=== PATIENT | female | born 1975 | race African-American/Black ===

== ENCOUNTER 2017-08-19 08:47 | Outpatient (CLI) | payer OTHER ==
--- NOTE | 2017-08-19 12:24 | CT ---
CT ABDOMEN AND PELVIS WITH AND WITHOUT IV CONTRAST: HISTORY: Right renal mass. Followup. COMPARISON: 06/15/2012 and 05/03/2015 FINDINGS: The lung bases are clear. The oval fat density mass within the posterior cortex of the right kidney remains well circumscribed. It is now 1.3 cm in greatest depth on the axial images, where it was 1 .0 cm on the previous study and 0.4 cm on the 2012 exam. No new renal masses are apparent. No urin alexandra tract calcifications are evident. No filling defects are present within the urinary system on t he delayed images. The liver, spleen, left kidney, adrenal glands, and pancreas are within normal l imits. 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 POS: [facility]
[2017-08-19] MEDS ORDERED: Iopamidol 370 76% 100 ML VIAL ONE (16:36)
== END 2017-08-19 08:48 | disposition home or self-care (01) ==
LOC: CT 08:47
PROVIDERS: ATTEND Urology
DX: N28.1 Cyst of kidney, acquired (principal); R31.29 Other microscopic hematuria; D17.71 Benign lipomatous neoplasm of kidney
CPT/HCPCS: 36415; 74178; 80048; 81001; 87086

== ENCOUNTER 2017-10-26 09:08 | Emergency (ER) | payer OTHER ==
[2017-10-26] MEDS ORDERED: HYDROcodone/Acetaminophen 10/325 mg Tablet ONE (10:24)
--- NOTE | 2017-10-26 10:43 | RAD ---
RIGHT KNEE 4 VIEWS; Date: 10/26/17 HISTORY: Joint pain. COMPARISON: None. FINDINGS: No joint effusion. No fracture. No cortical irregularity. No periosteal reaction. Joint spaces are pr eserved. IMPRESSION: Unremarkable 4 views right knee. POS: [facility]
== END 2017-10-26 10:56 | disposition home or self-care (01) ==
LOC: ERS 09:08
DX: M17.0 Bilateral primary osteoarthritis of knee (principal); I10 Essential (primary) hypertension; F41.9 Anxiety disorder, unspecified

== ENCOUNTER 2017-11-15 08:36 | Emergency (ER) | payer OTHER | END 2017-11-15 09:35 | disposition home or self-care (01) | LOC: ERS 08:36 | DX: J06.9 Acute upper respiratory infection, unspecified (principal); I10 Essential (primary) hypertension; F41.9 Anxiety disorder, unspecified | CPT/HCPCS: 99283 ==

== ENCOUNTER 2018-01-29 19:08 | Emergency (ER) | payer OTHER ==
[2018-01-29] MEDS ORDERED: Ketorolac Tromethamine 30 MG/ML VIAL ONE (20:55)
== END 2018-01-29 21:30 | disposition home or self-care (01) ==
LOC: ERS 19:08
DX: G89.29 Other chronic pain (principal); M79.662 Pain in left lower leg; M79.661 Pain in right lower leg; I10 Essential (primary) hypertension; F41.9 Anxiety disorder, unspecified
CPT/HCPCS: 96372; J1885

== ENCOUNTER 2018-03-05 19:24 | Emergency (ER) | payer OTHER ==
[2018-03-05] MEDS ORDERED: Ketorolac Tromethamine 30 MG/ML VIAL ONE (19:50)
== END 2018-03-05 20:14 | disposition home or self-care (01) ==
LOC: ERS 19:24
DX: G89.29 Other chronic pain (principal); M79.605 Pain in left leg; M79.604 Pain in right leg; I10 Essential (primary) hypertension; F41.9 Anxiety disorder, unspecified
CPT/HCPCS: 96372; J1885

== ENCOUNTER 2018-03-17 11:38 | Emergency (ER) | payer OTHER ==
[2018-03-17 12:17] LABS: Bilirubin Negative (Negative); Blood, Urine Negative (Negative); Clarity CLEAR (Clear); Glucose, Urine (Dipstick) Negative (Negative); Leukocyte Negative (Negative); Nitrite Negative (Negative); Protein, Urine (Dipstick) Negative (Neg-Trace); Specific Gravity, Urine 1.025 (1.002-1.036)
[2018-03-17 12:21] LABS: Pregnancy Test - Urine (BHCG) Negative (Negative); Pregu Control Background? CLEAR/WHITE (CLR/WHITE); Pregu Control Bar Appear? YES (CONTROL BAR); Specific Gravity 1.025 (1.002-1.036)
[2018-03-17 13:03] LABS: #Basophils 0.1 thou/uL (0.0-0.2); #Eosinphils 0.1 thou/uL (0.0-0.7); #Lymphocytes 3.8 thou/uL (1.20-3.40); #Monocytes 0.7 thou/uL (0.11-0.59); #Neutrophils 8.2 thou/uL (1.40-6.50); %Basophils 0.4 % (0.0-1.0); %Eosinophils 0.6 % (0.0-10.0); %Lymphocytes 29.7 % (21.0-51.0); %Monocytes 5.6 % (0.0-10.0); %Neutrophils 63.7 % (42.0-75.0); Mean Corpuscular Hemoglobin 29.2 pg (27.0-31.0); Mean Corpuscular Volume 88.6 fl (81.0-99.0); Mean Platelet Volume 7.7 fL (7.4-10.4); Platelet Count 355 thou/uL (130-400); RBC Distribution Width 11.5 % (11.5-14.5); Red Blood Cell (RBC) Count 4.46 mill/uL (4.20-5.40); White Blood Cell (WBC) Count 12.9 thou/uL (4.8-10.8)
[2018-03-17 13:27] LABS: ALT (SGPT) 21 U/L (8-55); AST (SGOT) 16 U/L (5-34); Albumin 3.9 g/dL (3.5-5.0); Alkaline Phosphatase 94 U/L (40-150); Anion Gap 11 mmol/L (10-20); BUN (Urea Nitrogen) 10 mg/dL (7.0-18.7); Bilirubin, Total 0.4 mg/dL (0.2-1.2); Calc. Creatinine Clearance 0 mL/min (70-130); Calcium 9.4 mg/dL (7.8-10.44); Carbon Dioxide 24 mmol/L (22-29); Chloride 104 mmol/L (98-107); Estimated GFR-MDRD 84; Globulin 3.6 g/dL (2.4-3.5); Glucose 66 mg/dL (70-105); Lipase 16 U/L (8-78); Potassium 3.4 mmol/L (3.5-5.1); Protein, Total 7.5 g/dL (6.0-8.3); Sodium 136 mmol/L (136-145)
[2018-03-17] MEDS ORDERED: Ketorolac Tromethamine 30 MG/ML VIAL ONE (13:39)
--- NOTE | 2018-03-17 14:14 | ULT ---
TRANSABDOMINAL AND TRANSVAGINAL PELVIC ULTRASOUND WITH COLORFLOW AND SPECTRAL DOPPLER: HISTORY: Midline pelvic pain. FINDINGS: The patient is status post hysterectomy. The right ovary is not visualized. The left ovary measures 2.5 x 4.1 x 3.6 cm and demonstrates flow. There is a 2 cm cyst on the left ovary. No free fluid is seen. IMPRESSION: A 2 cm left ovarian cyst. POS: [facility]
[2018-03-17] MEDS ORDERED: Azithromycin 250 MG TAB ONE (15:38)
[2018-03-17] MEDS ORDERED: cefTRIAXone\\ROCEPHIN 250 MG VIAL ONE (15:38)
[2018-03-17] MEDS ORDERED: Sterile Water 10 ML ONE (15:39)
[2018-03-19 22:59] LABS: Chlamydia by PCR Not Detected (NotDetected); GC by PCR Not Detected (NotDetected)
== END 2018-03-17 16:25 | disposition home or self-care (01) ==
LOC: ERS 11:38
DX: N73.9 Female pelvic inflammatory disease, unspecified (principal); N76.0 Acute vaginitis; N83.202 Unspecified ovarian cyst, left side; I10 Essential (primary) hypertension; F41.9 Anxiety disorder, unspecified; Z79.899 Other long term (current) drug therapy
CPT/HCPCS: 36415; 36416; 76856; 80053; 81003; 81025; 83690; 85025; 87480; 87491; 87510; 87591; 87660; 93976; 96372; A4216; J0696; J1885

== ENCOUNTER 2018-04-03 00:53 | Emergency (ER) | payer OTHER | END 2018-04-03 01:32 | disposition home or self-care (01) | LOC: ERS 00:53 | DX: N76.0 Acute vaginitis (principal); F41.9 Anxiety disorder, unspecified | CPT/HCPCS: 99283 ==

== ENCOUNTER 2018-09-20 14:41 | Emergency (ER) | payer OTHER ==
[2018-09-20 15:09] LABS: Bilirubin Negative (Negative); Blood, Urine Negative (Negative); Clarity TURBID (Clear); Glucose, Urine (Dipstick) Negative (Negative); Leukocyte Negative (Negative); Nitrite Negative (Negative); Protein, Urine (Dipstick) Negative (Neg-Trace); Specific Gravity, Urine 1.026 (1.002-1.036); Urobilinogen 0.2 mg/dL (0.2-1.0)
[2018-09-20] MEDS ORDERED: Ketorolac Tromethamine 30 MG/ML VIAL ONE (15:50)
[2018-09-20] MEDS ORDERED: Diazepam 5 MG TAB ONE (15:55)
== END 2018-09-20 16:21 | disposition home or self-care (01) ==
LOC: ERS 14:41
DX: G89.29 Other chronic pain (principal); M54.5 Low back pain; I10 Essential (primary) hypertension; F41.9 Anxiety disorder, unspecified
CPT/HCPCS: 81003; 96372; J1885

== ENCOUNTER 2018-10-24 19:41 | Emergency (ER) | payer OTHER ==
[2018-10-24] MEDS ORDERED: Ketorolac Tromethamine 60 MG/2 ML VIAL ONE (20:13)
== END 2018-10-24 20:35 | disposition home or self-care (01) ==
LOC: ERS 19:41
DX: G89.29 Other chronic pain (principal); M54.5 Low back pain; I10 Essential (primary) hypertension; F41.9 Anxiety disorder, unspecified; F32.9 Major depressive disorder, single episode, unspecified
CPT/HCPCS: 96372; J1885

== ENCOUNTER 2019-01-10 12:48 | Emergency (ER) | payer OTHER ==
[2019-01-10 13:25] LABS: Bilirubin Negative (Negative); Blood, Urine Negative (Negative); Clarity CLEAR (Clear); Glucose, Urine (Dipstick) Negative (Negative); Leukocyte Negative (Negative); Nitrite Negative (Negative); Protein, Urine (Dipstick) Negative (Neg-Trace); Specific Gravity, Urine 1.015 (1.002-1.036); Urobilinogen 0.2 mg/dL (0.2-1.0); pH, Urine 6.5 (5.0-9.0)
[2019-01-10 13:27] LABS: Pregnancy Test - Urine (BHCG) Negative (Negative); Pregu Control Background? CLEAR/WHITE (CLR/WHITE); Pregu Control Bar Appear? YES (CONTROL BAR); Specific Gravity 1.015 (1.002-1.036)
[2019-01-10] MEDS ORDERED: Acetaminophen 325 MG TAB ONE (13:29)
[2019-01-10] MEDS ORDERED: Amlodipine 5 MG TAB ONE (13:29)
[2019-01-10 13:37] LABS: Hemoglobin 13.3 g/dL (12.0-16.0); Mean Corpuscular HGB CONC 33.4 g/dL (32.0-36.0); Mean Corpuscular Hemoglobin 29.4 pg (27.0-31.0); Mean Platelet Volume 7.8 fL (7.4-10.4); Platelet Count 357 thou/uL (130-400); RBC Distribution Width 11.1 % (11.5-14.5); Red Blood Cell (RBC) Count 4.54 mill/uL (4.20-5.40)
[2019-01-10 13:54] LABS: ALT (SGPT) 12 U/L (8-55); AST (SGOT) 14 U/L (5-34); Albumin 4.2 g/dL (3.5-5.0); Alkaline Phosphatase 116 U/L (40-150); Anion Gap 12 mmol/L (10-20); BUN (Urea Nitrogen) 6 mg/dL (7.0-18.7); Bilirubin, Total 0.4 mg/dL (0.2-1.2); Calc. Creatinine Clearance 0 mL/min (70-130); Calcium 9.4 mg/dL (7.8-10.44); Carbon Dioxide 25 mmol/L (22-29); Chloride 103 mmol/L (98-107); Estimated GFR-MDRD Greater than 90; Glucose 85 mg/dL (70-105); Lipase 188 U/L (8-78); Potassium 3.8 mmol/L (3.5-5.1); Protein, Total 8.2 g/dL (6.0-8.3); Sodium 136 mmol/L (136-145)
[2019-01-10 13:59] LABS: Eosinophils 1 % (0-10); Lymphocytes 52 % (21-51); MDiff Complete? YES; Monocytes 7 % (0-10); Neutrophil 32 % (42-75); Platelet Morphology Comment Appears Adequate; RBC Morphology Normal; Reactive Lymphocytes 6 % (0-10)
== END 2019-01-10 14:40 | disposition home or self-care (01) ==
LOC: ERS 12:48
DX: R35.8 Other polyuria (principal); I10 Essential (primary) hypertension; F32.9 Major depressive disorder, single episode, unspecified; F41.9 Anxiety disorder, unspecified; Z79.899 Other long term (current) drug therapy
CPT/HCPCS: 36415; 80053; 81003; 81025; 83690; 85025; 99284

== ENCOUNTER 2019-04-22 18:04 | Emergency (ER) | payer OTHER ==
[2019-04-22] MEDS ORDERED: Ketorolac Tromethamine 30 MG/ML VIAL ONE (18:39)
== END 2019-04-22 19:00 | disposition home or self-care (01) ==
LOC: ERS 18:04
DX: M54.40 Lumbago with sciatica, unspecified side (principal); F41.9 Anxiety disorder, unspecified; F32.9 Major depressive disorder, single episode, unspecified; I10 Essential (primary) hypertension; Z79.899 Other long term (current) drug therapy
CPT/HCPCS: 96372; J1885

== ENCOUNTER 2019-04-28 14:28 | Emergency (ER) | payer OTHER ==
[2019-04-28] MEDS ORDERED: Lorazepam 1 MG TAB ONE (16:11)
--- NOTE | 2019-04-28 16:35 | RAD ---
Chest one view HISTORY: Chest pain. COMPARISON: 01/20/2014. FINDINGS: Cardiac silhouette is magnified by projection. Pulmonary vasculature is unremarkable. Media stinum is midline. No lobar consolidation or evidence of pneumothorax. IMPRESSION: No active cardiopulmonary abnormalities are demonstrated.
[2019-04-28 16:38] LABS: Hemoglobin 11.4 g/dL (12.0-16.0); Mean Corpuscular HGB CONC 33.4 g/dL (32.0-36.0); Mean Corpuscular Hemoglobin 29.1 pg (27.0-31.0); Mean Platelet Volume 9.1 fL (7.4-10.4); Platelet Count 275 thou/uL (130-400); RBC Distribution Width 11.5 % (11.5-14.5); Red Blood Cell (RBC) Count 3.92 mill/uL (4.20-5.40); White Blood Cell (WBC) Count 8.9 thou/uL (4.8-10.8)
[2019-04-28 16:52] LABS: ALT (SGPT) 10 U/L (8-55); AST (SGOT) 15 U/L (5-34); Albumin 4.1 g/dL (3.5-5.0); Alkaline Phosphatase 95 U/L (40-150); Anion Gap 13 mmol/L (10-20); BUN (Urea Nitrogen) 15 mg/dL (7.0-18.7); Bilirubin, Total 0.2 mg/dL (0.2-1.2); Calc. Creatinine Clearance 0 mL/min (70-130); Carbon Dioxide 23 mmol/L (22-29); Chloride 105 mmol/L (98-107); Estimated GFR-MDRD Greater than 90; Globulin 3.6 g/dL (2.4-3.5); Glucose 76 mg/dL (70-105); Potassium 3.9 mmol/L (3.5-5.1); Protein, Total 7.7 g/dL (6.0-8.3); Sodium 137 mmol/L (136-145)
[2019-04-28 16:58] LABS: Eosinophils 1 % (0-10); Lymphocytes 41 % (21-51); MDiff Complete? YES; Monocytes 4 % (0-10); Neutrophil 54 % (42-75); Platelet Morphology Comment Appears Adequate
--- NOTE | 2019-05-01 10:27 | EKG ---
Test Reason : Blood Pressure : / mmHG Vent. Rate : 061 BPM Atrial Rate : 061 BPM P-R Int : 172 ms QRS Dur : 072 ms QT Int : 412 ms P-R-T Axes : 006 -19 -09 degrees QTc Int : 414 ms Normal sinus rhythm Voltage criteria for left ventricular hypertrophy Nonspecific T wave abnormality Abnormal ECG Confirmed by AMANDA RYAN ([id number]), news editor TALI SYLVESTER ([id number]) on 05/01/2019 10:26:58 AM Referred By: Confirmed By:AMANDA RYAN
== END 2019-04-28 17:19 | disposition home or self-care (01) ==
LOC: ERS 14:28
DX: R07.89 Other chest pain (principal); F41.9 Anxiety disorder, unspecified; F32.9 Major depressive disorder, single episode, unspecified
CPT/HCPCS: 36415; 71045; 80053; 84484; 85025; 93005

== ENCOUNTER 2019-07-22 09:01 | Outpatient (CLI) | payer OTHER ==
--- NOTE | 2019-07-22 09:24 | RAD ---
EXAM: 2 views of the lumbosacral spine HISTORY: Low back pain COMPARISON: 07/23/2016 FINDINGS: 2 views of the lumbosacral spine shows normal height and alignment of the vertebral bodies and intervertebral discs without fracture or subluxation. No significant degenerative changes are seen. The sacroiliac joints are unremarkable. IMPRESSION: No significant lumbar spine abnormality.
== END 2019-07-22 09:02 | disposition home or self-care (01) ==
LOC: BICRAD 09:01
PROVIDERS: ATTEND Internal Medicine
DX: Z02.71 Encounter for disability determination (principal)
CPT/HCPCS: 72100

== ENCOUNTER 2019-08-17 17:37 | Emergency (ER) | payer OTHER, SELFPAY ==
[2019-08-17] MEDS ORDERED: Cyclobenzaprine 10 MG TAB ONE (18:46)
[2019-08-17] MEDS ORDERED: Ketorolac Tromethamine 30 MG/ML VIAL ONE (18:46)
== END 2019-08-17 19:15 | disposition home or self-care (01) ==
LOC: ERS 17:37
DX: M62.838 Other muscle spasm (principal); I10 Essential (primary) hypertension; F41.9 Anxiety disorder, unspecified; F32.9 Major depressive disorder, single episode, unspecified
CPT/HCPCS: 96372; 99283; J1885

== ENCOUNTER 2019-09-26 16:12 | Emergency (ER) | payer MEDICAID, SELFPAY ==
[2019-09-26] MEDS ORDERED: Ibuprofen 200 MG TAB ONE (16:44)
== END 2019-09-26 17:08 | disposition home or self-care (01) ==
LOC: ERS 16:12
DX: J02.9 Acute pharyngitis, unspecified (principal); I10 Essential (primary) hypertension; F41.9 Anxiety disorder, unspecified; F32.9 Major depressive disorder, single episode, unspecified; Z79.899 Other long term (current) drug therapy
CPT/HCPCS: 87081; 87430; 99283

== ENCOUNTER 2019-09-28 23:20 | Emergency (ER) | payer SELFPAY ==
[2019-09-29] MEDS ORDERED: traMADol HCl 50 MG TAB ONE (00:36)
[2019-09-29] MEDS ORDERED: Dexamethasone 4 mg/ml Vial ONE (00:37)
[2019-09-29] MEDS ORDERED: Dexamethasone 4 MG TAB ONE (00:40)
== END 2019-09-29 01:10 | disposition home or self-care (01) ==
LOC: ERS 23:20
DX: J02.9 Acute pharyngitis, unspecified (principal); B34.9 Viral infection, unspecified; G62.9 Polyneuropathy, unspecified; I10 Essential (primary) hypertension; F41.9 Anxiety disorder, unspecified; F32.9 Major depressive disorder, single episode, unspecified; Z79.899 Other long term (current) drug therapy
CPT/HCPCS: 87081; 87430; J1100; J8540

== ENCOUNTER 2019-10-25 15:45 | Emergency (ER) | payer SELFPAY ==
[2019-10-25] MEDS ORDERED: Acetaminophen 325 MG TAB ONE (16:24)
[2019-10-25 17:01] LABS: #Lymphocytes 1.8 thou/uL (1.20-3.40); #Monocytes 0.3 thou/uL (0.11-0.59); #Neutrophils 3.2 thou/uL (1.40-6.50); %Basophils 0.2 % (0.0-1.0); %Eosinophils 0.4 % (0.0-10.0); %Lymphocytes 33.5 % (21.0-51.0); Hemoglobin 12.5 g/dL (12.0-16.0); Mean Corpuscular HGB CONC 32.8 g/dL (32.0-36.0); Mean Corpuscular Hemoglobin 28.2 pg (27.0-31.0); Mean Corpuscular Volume 85.9 fL (78.0-98.0); Mean Platelet Volume 8.4 fL (7.4-10.4); Platelet Count 264 thou/uL (130-400); RBC Distribution Width 11.7 % (11.5-14.5); Red Blood Cell (RBC) Count 4.44 mill/uL (4.20-5.40); White Blood Cell (WBC) Count 5.3 thou/uL (4.8-10.8)
[2019-10-25 17:26] LABS: ALT (SGPT) 9 U/L (8-55); AST (SGOT) 16 U/L (5-34); Alkaline Phosphatase 94 U/L (40-110); Anion Gap 13 mmol/L (10-20); BUN (Urea Nitrogen) 7 mg/dL (7.0-18.7); Bilirubin, Total 0.4 mg/dL (0.2-1.2); Calc. Creatinine Clearance 0 mL/min (70-130); Calcium 8.8 mg/dL (7.8-10.44); Carbon Dioxide 19 mmol/L (22-29); Chloride 105 mmol/L (98-107); Estimated GFR-MDRD Greater than 90; Globulin 3.9 g/dL (2.4-3.5); Glucose 82 mg/dL (70-105); Lipase 4 U/L (8-78); Potassium 3.5 mmol/L (3.5-5.1); Protein, Total 7.9 g/dL (6.0-8.3); Sodium 133 mmol/L (136-145)
[2019-10-25 17:36] LABS: Bilirubin Negative (Negative); Blood, Urine 1+ (Negative); Clarity Turbid (Clear); Glucose, Urine (Dipstick) Normal (Negative); Leukocyte Negative Leu/uL (Negative); Nitrite Negative (Negative); Pregnancy Test - Urine (BHCG) Negative (Negative); Pregu Control Background? CLEAR/WHITE (CLR/WHITE); Pregu Control Bar Appear? YES (CONTROL BAR); Protein, Urine (Dipstick) 30 mg/dL (Neg-Trace); Specific Gravity 1.029 (1.002-1.036); Urobilinogen Normal mg/dL (Less than 2)
[2019-10-25 17:44] LABS: Bacteria/HPF None Seen HPF (None Seen); WBC/HPF 0-3 HPF (0-3)
== END 2019-10-25 18:15 | disposition home or self-care (01) ==
LOC: ERS 15:45
DX: R19.7 Diarrhea, unspecified (principal); I10 Essential (primary) hypertension; F32.9 Major depressive disorder, single episode, unspecified; F41.9 Anxiety disorder, unspecified; Z79.899 Other long term (current) drug therapy
CPT/HCPCS: 80053; 81003; 81015; 81025; 83690; 85025; 96360

== ENCOUNTER 2019-12-18 19:00 | Emergency (ER) | payer SELFPAY | END 2019-12-18 20:30 | disposition home or self-care (01) | LOC: ERS 19:00 | DX: G89.29 Other chronic pain (principal); M25.562 Pain in left knee; M25.561 Pain in right knee; I10 Essential (primary) hypertension; G62.9 Polyneuropathy, unspecified; F41.9 Anxiety disorder, unspecified; F32.9 Major depressive disorder, single episode, unspecified; Z79.899 Other long term (current) drug therapy | CPT/HCPCS: 99281 ==

== ENCOUNTER 2020-09-23 09:34 | Emergency (ER) | payer SELFPAY ==
[2020-09-23 10:03] LABS: Bilirubin Negative (Negative); Blood, Urine Negative (Negative); Clarity Clear (Clear); Glucose, Urine (Dipstick) Normal (Negative); Ketone, Urine Negative (Negative); Leukocyte Negative Leu/uL (Negative); Nitrite Negative (Negative); Protein, Urine (Dipstick) 10 mg/dL (Neg-Trace); Specific Gravity, Urine 1.023 (1.002-1.036); Urobilinogen Normal mg/dL (Less than 2); pH, Urine 6.5 (5.0-9.0)
[2020-09-23] MEDS ORDERED: Ketorolac Tromethamine 30 MG/ML VIAL ONE (10:20)
[2020-09-23 10:34] LABS: #Basophils 0.1 thou/uL (0.0-0.2); #Eosinphils 0.1 thou/uL (0.0-0.7); #Lymphocytes 3.2 thou/uL (1.20-3.40); #Monocytes 0.4 thou/uL (0.11-0.59); #Neutrophils 2.7 thou/uL (1.40-6.50); %Basophils 0.9 % (0.0-1.0); %Eosinophils 1.2 % (0.0-10.0); %Lymphocytes 49.4 % (21.0-51.0); %Monocytes 6.5 % (0.0-10.0); Hemoglobin 12.5 g/dL (12.0-16.0); Mean Corpuscular Hemoglobin 29.6 pg (27.0-31.0); Mean Platelet Volume 9.4 fL (7.4-10.4); Platelet Count 362 thou/uL (130-400); RBC Distribution Width 11.8 % (11.5-14.5); Red Blood Cell (RBC) Count 4.23 mill/uL (4.20-5.40); White Blood Cell (WBC) Count 6.5 thou/uL (4.8-10.8)
[2020-09-23 11:02] LABS: ALT (SGPT) 11 U/L (8-55); AST (SGOT) 17 U/L (5-34); Albumin 3.7 g/dL (3.5-5.0); Alkaline Phosphatase 90 U/L (40-110); Anion Gap 12 mmol/L (10-20); BUN (Urea Nitrogen) 10 mg/dL (7.0-18.7); Bilirubin, Total 0.3 mg/dL (0.2-1.2); Calc. Creatinine Clearance 0 mL/min (70-130); Carbon Dioxide 22 mmol/L (22-29); Chloride 106 mmol/L (98-107); Estimated GFR-MDRD Greater than 90; Glucose 85 mg/dL (70-105); Lipase 10 U/L (8-78); Potassium 4.2 mmol/L (3.5-5.1); Protein, Total 7.7 g/dL (6.0-8.3); Sodium 136 mmol/L (136-145)
--- NOTE | 2020-09-23 12:29 | CT ---
CT ABDOMEN WITH CONTRAST CT PELVIS WITH CONTRAST: DATE: 09/23/2020 HISTORY: 45-year-old female with suprapubic abdominal pain and urinary frequency. TECHNIQUE: IV injection of iodinated contrast media: Administered Oral contrast media:Not administered FINDINGS: Liver: No focal solid mass. Spleen: No splenomegaly.. Pancreas: No mass or surrounding fat stranding.. Adrenals: No mass.. Kidneys: No hydronephrosis or enhancement abnormalities.. Well-circumscribed 1.7 x 1.3 x 1.3 cm fatty mass at the posterior aspect of the right renal midpole. Ureters: No dilation. Bladder: Normal, thin womack. Abdominal aorta: No aneurysm. Small bowel: No dilation. Colon: No adjacent fat stranding. Appendix: No dilation or adjacent fat stranding.. Free air: None. Free fluid: None. Hernia: None IMPRESSION: 1) No major pathology and no acute findings. 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
[2020-09-23] MEDS ORDERED: Iopamidol-370 76% 500 ML 1 ML ONE (14:25)
== END 2020-09-23 12:47 | disposition home or self-care (01) ==
LOC: ERS 09:34
DX: N39.0 Urinary tract infection, site not specified (principal); I10 Essential (primary) hypertension; F41.9 Anxiety disorder, unspecified; F32.9 Major depressive disorder, single episode, unspecified; Z79.899 Other long term (current) drug therapy
CPT/HCPCS: 36415; 74177; 80053; 81003; 83690; 85025; 96374; J1885; Q9967

== ENCOUNTER 2021-01-20 12:19 | Emergency (ER) | payer SELFPAY ==
[2021-01-20] MEDS ORDERED: Dexamethasone 10 MG/ML VIAL ONE (12:43)
== END 2021-01-20 13:15 | disposition home or self-care (01) ==
LOC: ERS 12:19
DX: G62.9 Polyneuropathy, unspecified (principal); I10 Essential (primary) hypertension; Z79.899 Other long term (current) drug therapy
CPT/HCPCS: 96372; 99283; J1100

== ENCOUNTER 2021-07-24 13:54 | Emergency (ER) | payer SELFPAY | END 2021-07-24 16:26 | disposition home or self-care (01) | LOC: ERS 13:54 | DX: J02.9 Acute pharyngitis, unspecified (principal); K21.9 Gastro-esophageal reflux disease without esophagitis; E07.89 Other specified disorders of thyroid; I10 Essential (primary) hypertension; G62.9 Polyneuropathy, unspecified | CPT/HCPCS: 87081; 87430 ==

== ENCOUNTER 2021-10-13 13:18 | Emergency (ER) | payer SELFPAY ==
[2021-10-13] MEDS ORDERED: Dexamethasone 4 mg/ml Vial ONE (14:24)
== END 2021-10-13 14:46 | disposition home or self-care (01) ==
LOC: ERS 13:18
DX: G62.9 Polyneuropathy, unspecified (principal); I10 Essential (primary) hypertension; Z79.899 Other long term (current) drug therapy
CPT/HCPCS: 99283; J1100

== ENCOUNTER 2021-10-24 17:01 | Emergency (ER) | payer SELFPAY | END 2021-10-24 19:12 | disposition home or self-care (01) | LOC: ERS 17:01 | DX: R05.9 Cough, unspecified (principal); Z20.822 Contact with and (suspected) exposure to COVID-19; I10 Essential (primary) hypertension | CPT/HCPCS: 99283 ==

== ENCOUNTER 2021-11-11 14:03 | Emergency (ER) | payer SELFPAY ==
[2021-11-11] MEDS ORDERED: Orphenadrine Citrate 60 MG/2 ML VIAL IM SCH (15:45)
== END 2021-11-11 16:20 | disposition home or self-care (01) ==
LOC: ERS 14:03
DX: M79.605 Pain in left leg (principal); M79.604 Pain in right leg; I10 Essential (primary) hypertension
CPT/HCPCS: 96372; 99282; J2360

== ENCOUNTER 2022-03-24 14:42 | Emergency (ER) | payer SELFPAY ==
[2022-03-24] MEDS ORDERED: Dexameth. Sod Phosp. 10 MG/ML (CHEMO USE ONLY) ONE (15:31)
== END 2022-03-24 15:40 | disposition home or self-care (01) ==
LOC: ERS 14:42
DX: G62.9 Polyneuropathy, unspecified (principal); I10 Essential (primary) hypertension
CPT/HCPCS: 96372; 99283; J1100

== ENCOUNTER 2022-07-03 12:56 | Emergency (ER) | payer SELFPAY | END 2022-07-03 13:44 | disposition home or self-care (01) | LOC: ERS 12:56 | DX: J02.0 Streptococcal pharyngitis (principal); I10 Essential (primary) hypertension; Z79.899 Other long term (current) drug therapy | CPT/HCPCS: 87430; 99283 ==

== ENCOUNTER 2022-08-12 17:36 | Emergency (ER) | payer SELFPAY ==
[2022-08-12] MEDS ORDERED: Ketorolac Tromethamine 30 MG/ML VIAL ONE (19:22)
== END 2022-08-12 19:52 | disposition home or self-care (01) ==
LOC: ERS 17:36
DX: G62.9 Polyneuropathy, unspecified (principal); I10 Essential (primary) hypertension
CPT/HCPCS: 96372; 99282; J1885

== ENCOUNTER 2022-09-15 17:56 | Emergency (ER) | payer SELFPAY ==
[2022-09-15 18:21] LABS: Hemoglobin 11.9 g/dL (12.0-16.0); Mean Corpuscular HGB CONC 31.5 g/dL (32.0-36.0); Mean Corpuscular Hemoglobin 27.8 pg (27.0-31.0); Mean Corpuscular Volume 88.4 fl (78.0-98.0); Mean Platelet Volume 8.2 fL (7.4-10.4); Platelet Count 334 thou/uL (130-400); RBC Distribution Width 11.5 % (11.5-14.5); Red Blood Cell (RBC) Count 4.28 mill/uL (4.20-5.40)
[2022-09-15 18:38] LABS: Eosinophils 1 % (0-10); Lymphocytes 50 % (21-51); MDiff Complete? YES; Monocytes 4 % (0-10); Neutrophil 43 % (42-75); Platelet Morphology Comment Appears Adequate; RBC Morphology Normal; Reactive Lymphocytes 2 % (0-10)
[2022-09-15 18:43] LABS: ALT (SGPT) 9 U/L (8-55); AST (SGOT) 11 U/L (5-34); Albumin 3.9 g/dL (3.5-5.0); Alkaline Phosphatase 87 U/L (40-110); Anion Gap 11 mmol/L (10-20); BUN (Urea Nitrogen) 12 mg/dL (7.0-18.7); Bilirubin, Total 0.2 mg/dL (0.2-1.2); Calc. Creatinine Clearance 0 mL/min (70-130); Calcium 8.8 mg/dL (7.8-10.44); Carbon Dioxide 25 mmol/L (22-29); Chloride 105 mmol/L (98-107); Estimated GFR 93; Globulin 3.4 g/dL (2.4-3.5); Glucose 98 mg/dL (70-105); Lipase 13 U/L (8-78); Potassium 3.5 mmol/L (3.5-5.1); Protein, Total 7.3 g/dL (6.0-8.3); Sodium 137 mmol/L (136-145)
[2022-09-15 22:10] LABS: Bilirubin Negative (Negative); Blood, Urine Negative (Negative); Clarity Turbid (Clear); Glucose, Urine (Dipstick) Normal (Negative); Ketone, Urine Negative (Negative); Leukocyte Negative Leu/uL (Negative); Nitrite Negative (Negative); Protein, Urine (Dipstick) Negative (Neg-Trace); Specific Gravity, Urine 1.019 (1.002-1.036); Urobilinogen Normal mg/dL (Less than 2)
[2022-09-15 22:12] LABS: Pregnancy Test - Urine (BHCG) Negative (Negative); Pregu Control Background? CLEAR/WHITE (CLR/WHITE); Pregu Control Bar Appear? YES (CONTROL BAR); Specific Gravity 1.019 (1.002-1.036)
== END 2022-09-15 23:16 | disposition home or self-care (01) ==
LOC: ERS 17:56
DX: R30.0 Dysuria (principal); I10 Essential (primary) hypertension; Z79.899 Other long term (current) drug therapy
CPT/HCPCS: 36415; 80053; 81003; 81025; 83690; 85025; 87086; 99283

== ENCOUNTER 2023-02-08 17:43 | Emergency (ER) | payer SELFPAY ==
[2023-02-08] MEDS ORDERED: Ibuprofen 200 MG TAB ONE (18:33)
[2023-02-08] MEDS ORDERED: Dexamethasone 4 MG TAB ONE (18:34)
[2023-02-08] MEDS ORDERED: Oxymetazoline HCl 0.05% (30 ML BOT) ONE (18:34)
[2023-02-08 18:46] LABS: SARS-CoV-2 NAA Rapid Test Not Detected (NotDetected)
[2023-02-08] MEDS ORDERED: Albuterol 200 PUFF (6.7GM INHALER) ONE (19:03)
== END 2023-02-08 19:08 | disposition home or self-care (01) ==
LOC: ERS 17:43
DX: J32.9 Chronic sinusitis, unspecified (principal); B34.9 Viral infection, unspecified; I10 Essential (primary) hypertension; Z20.822 Contact with and (suspected) exposure to COVID-19
CPT/HCPCS: 94664; J8540

== ENCOUNTER 2023-07-06 18:59 | Emergency (ER) | payer BC, SELFPAY ==
[2023-07-06] MEDS ORDERED: Ketorolac Tromethamine 30 MG/ML VIAL ONE (20:24)
== END 2023-07-06 21:12 | disposition home or self-care (01) ==
LOC: ERS 18:59
DX: R51.9 Headache, unspecified (principal); I10 Essential (primary) hypertension
CPT/HCPCS: 96374; J1885

== ENCOUNTER 2023-09-30 14:43 | Emergency (ER) | payer BC, SELFPAY | END 2023-09-30 16:00 | disposition home or self-care (01) | LOC: ERS 14:43 | DX: H92.01 Otalgia, right ear (principal); H72.91 Unspecified perforation of tympanic membrane, right ear; I10 Essential (primary) hypertension; Z79.899 Other long term (current) drug therapy | CPT/HCPCS: 99282 ==

== ENCOUNTER 2024-01-16 19:53 | Emergency (ER) | payer OTHER ==
[2024-01-16] MEDS ORDERED: HYDROcodone/Acetaminophen 5/325 mg Tablet ONE (20:31)
== END 2024-01-16 20:51 | disposition home or self-care (01) ==
LOC: ERS 19:53
DX: M54.50 Low back pain, unspecified (principal); G89.29 Other chronic pain; I10 Essential (primary) hypertension
CPT/HCPCS: 99283

== ENCOUNTER 2024-01-29 18:11 | Emergency (ER) | payer OTHER ==
[2024-01-29] MEDS ORDERED: diphenhydrAMINE 25 MG CAP ONE (18:52)
[2024-01-29] MEDS ORDERED: Ketorolac Tromethamine 30 MG (1 mL) VIAL ONE (18:54)
[2024-01-29] MEDS ORDERED: Lidocaine 4% Patch TD SCH (19:00)
[2024-01-29] MEDS ORDERED: Acyclovir 800 mg Tablet PO SCH (19:00)
[2024-01-30] MEDS ORDERED: Transdermal Patch Removal TOP SCH (08:00)
== END 2024-01-29 19:36 | disposition home or self-care (01) ==
LOC: ERS 18:11
DX: B02.9 Zoster without complications (principal); I10 Essential (primary) hypertension; G62.9 Polyneuropathy, unspecified; Z55.6 Problems related to health literacy
CPT/HCPCS: 96372; 99282; J1885

== ENCOUNTER 2024-04-28 15:19 | Emergency (ER) | payer OTHER ==
[2024-04-28] MEDS ORDERED: HYDROcodone/Acetaminophen 10/325 mg Tablet ONE (17:14)
[2024-04-28] MEDS ORDERED: Amlodipine 5 MG TAB ONE (17:25)
== END 2024-04-28 17:16 | disposition home or self-care (01) ==
LOC: ERS 15:19
DX: G89.29 Other chronic pain (principal); M79.605 Pain in left leg; M79.604 Pain in right leg; I10 Essential (primary) hypertension; Z79.899 Other long term (current) drug therapy
CPT/HCPCS: 99282

== ENCOUNTER 2024-09-05 11:40 | Emergency (ER) | payer OTHER ==
[2024-09-05] MEDS ORDERED: Ibuprofen 200 MG TAB ONE (12:37)
[2024-09-05] MEDS ORDERED: Acetaminophen 500 MG TAB ONE (12:37)
[2024-09-05 12:39] LABS: Bacteria/HPF None Seen HPF (None Seen); Bilirubin Negative (Negative); Blood, Urine Negative (Negative); CAUTI Indications for Culture Dysuria,urgency,freq; Clarity Clear (Clear); Glucose, Urine (Dipstick) Normal (Negative); Ketone, Urine Negative (Negative); Leukocyte Negative Leu/uL (Negative); Nitrite Negative (Negative); Protein, Urine (Dipstick) Negative (Neg-Trace); RBC/HPF 0-3 HPF (0-3); Specific Gravity, Urine 1.019 (1.002-1.036); Urobilinogen Normal mg/dL (Less than 2); WBC/HPF 0-3 HPF (0-3)
[2024-09-05 12:41] LABS: Urine Culture Reflex No No
== END 2024-09-05 13:03 | disposition home or self-care (01) ==
LOC: ERS 11:40
DX: R10.30 Lower abdominal pain, unspecified (principal); I10 Essential (primary) hypertension; Z55.0 Illiteracy and low-level literacy
CPT/HCPCS: 81001; 99283

== ENCOUNTER 2024-11-27 18:49 | Emergency (ER) | payer OTHER ==
[2024-11-27 20:55] LABS: #Basophils 0.05 10x3/uL (0.0-0.2); %Basophils 0.7 % (0.0-1.0); %Monocytes 7.2 % (0.0-10.0); Hematocrit 36.4 % (36.0-47.0); Hemoglobin 11.9 g/dL (12.0-16.0); Mean Corpuscular HGB CONC 32.7 g/dL (32.0-36.0); Mean Corpuscular Hemoglobin 28.1 pg (27.0-31.0); Mean Corpuscular Volume 85.8 fL (78.0-98.0); Mean Platelet Volume 10.3 fL (7.4-10.4); Platelet Count 312 10x3/uL (130-400); RBC Distribution Width 12.7 % (11.5-14.5); Red Blood Cell (RBC) Count 4.24 mill/uL (4.20-5.40)
[2024-11-27] MEDS ORDERED: Ondansetron ODT 4 MG TAB ONE (20:59)
[2024-11-27 21:05] LABS: Bacteria/HPF None Seen HPF (None Seen); Bilirubin Negative (Negative); Blood, Urine Negative (Negative); CAUTI Indications for Culture Pelvic or flank pain; Clarity Clear (Clear); Glucose, Urine (Dipstick) Normal (Negative); Ketone, Urine Negative (Negative); Leukocyte Negative Leu/uL (Negative); Nitrite Negative (Negative); Protein, Urine (Dipstick) Negative (Neg-Trace); RBC/HPF None Seen HPF (0-3); Specific Gravity, Urine 1.013 (1.002-1.036); Squamous Epithelial 0-3 HPF (0-3); Urobilinogen Normal mg/dL (Less than 2); WBC/HPF None Seen HPF (0-3); pH, Urine 7.5 (5.0-9.0)
[2024-11-27 21:06] LABS: Urine Culture Reflex No No
[2024-11-27 22:01] LABS: ALT (SGPT) 18 U/L (8-55); AST (SGOT) 20 U/L (5-34); Albumin 3.7 g/dL (3.5-5.0); Alkaline Phosphatase 110 U/L (40-110); Anion Gap 13 mmol/L (10-20); BUN (Urea Nitrogen) 11 mg/dL (7.0-18.7); Bilirubin, Total 0.2 mg/dL (0.2-1.2); Calc. Creatinine Clearance 0 mL/min (70-130); Calcium 8.9 mg/dL (7.8-10.44); Carbon Dioxide 24 mmol/L (22-29); Chloride 106 mmol/L (98-107); Estimated GFR 106; Globulin 3.8 g/dL (2.4-3.5); Glucose 90 mg/dL (70-105); Lipase 28 U/L (8-78); Potassium 4.1 mmol/L (3.5-5.1); Protein, Total 7.5 g/dL (6.0-8.3); Sodium 139 mmol/L (136-145)
[2024-11-27] MEDS ORDERED: Dicyclomine 20 MG TAB ONE (22:13)
== END 2024-11-27 22:15 | disposition home or self-care (01) ==
LOC: ERS 18:49
DX: R10.11 Right upper quadrant pain (principal); R11.2 Nausea with vomiting, unspecified; I10 Essential (primary) hypertension; Z79.899 Other long term (current) drug therapy
CPT/HCPCS: 80053; 81001; 83690; 85025; 99284; Q0162

== ENCOUNTER 2025-07-27 12:23 | Emergency (ER) | payer OTHER ==
[2025-07-27 13:32] LABS: Pregnancy Test - Urine (BHCG) Negative (Negative); Pregu Control Background? CLEAR/WHITE (CLR/WHITE); Pregu Control Bar Appear? YES (CONTROL BAR)
[2025-07-27 13:40] LABS: CAUTI Indications for Culture Dysuria,urgency,freq; Glucose, Urine (Dipstick) Normal (Negative); Leukocyte Negative Leu/uL (Negative); Protein, Urine (Dipstick) 10 mg/dL (Neg-Trace); Specific Gravity, Urine 1.027 (1.002-1.036); WBC/HPF 0-3 HPF (0-3)
[2025-07-27 13:42] LABS: Bacteria/HPF 1+ HPF (None Seen)
[2025-07-27 13:44] LABS: Urine Culture Reflex No No
[2025-07-27 13:50] LABS: #Basophils 0.04 10x3/uL (0.0-0.2); #Eosinophils 0.07 10x3/uL (0.0-0.7); #Monocytes 0.45 10x3/uL (0.11-0.59); #Neutrophils 1.97 10x3/uL (1.40-6.50); %Basophils 0.7 % (0.0-1.0); %Eosinophils 1.2 % (0.0-10.0); %Lymphocytes 55.3 % (21.0-51.0); %Monocytes 7.9 % (0.0-10.0); %Neutrophils 34.7 % (42.0-75.0); Hematocrit 37.6 % (36.0-47.0); Hemoglobin 12.3 g/dL (12.0-16.0); Mean Corpuscular Hemoglobin 27.3 pg (27.0-31.0); Mean Corpuscular Volume 83.4 fL (78.0-98.0); Platelet Count 325 10x3/uL (130-400); Red Blood Cell (RBC) Count 4.51 mill/uL (4.20-5.40); White Blood Cell (WBC) Count 5.68 10x3/uL (4.8-10.8)
[2025-07-27] MEDS ORDERED: Ondansetron PF 4 MG/2 ML Vial ONE (14:05)
[2025-07-27] MEDS ORDERED: Ketorolac Tromethamine 30 MG (1 mL) VIAL ONE (14:05)
[2025-07-27] MEDS ORDERED: Famotidine/PF 20 mg/2ml Vial ONE (14:06)
[2025-07-27 14:09] LABS: ALT (SGPT) 12 U/L (Less than 34); AST (SGOT) 30 U/L (11-34); Albumin 4.0 g/dL (3.1-4.5); Alkaline Phosphatase 118 U/L (40-110); Anion Gap 15 mmol/L (10-20); BUN (Urea Nitrogen) 14 mg/dL (7.0-18.7); Bilirubin, Total 0.3 mg/dL (0.3-1.2); Calc. Creatinine Clearance 0 mL/min (70-130); Calcium 9.6 mg/dL (7.8-10.44); Carbon Dioxide 24 mmol/L (22-29); Chloride 103 mmol/L (98-107); Globulin 4.1 g/dL (2.4-3.5); Glucose 84 mg/dL (70-105); Lipase 17 U/L (8-78); Potassium 4.2 mmol/L (3.5-5.1); Sodium 138 mmol/L (136-145)
[2025-07-27] MEDS ORDERED: Iopamidol-370 76% 500 ML MDV (1 ML CHARGE) ONE (15:23)
== END 2025-07-27 15:30 | disposition home or self-care (01) ==
LOC: ERS 12:23
DX: K21.9 Gastro-esophageal reflux disease without esophagitis (principal); I10 Essential (primary) hypertension
CPT/HCPCS: 74177; 76705; 80053; 81001; 81025; 83690; 84484; 85025; 93005; 96361; 96374; 96375; J1308; J1885; J2405; Q9967

== ENCOUNTER 2025-09-09 14:57 | Outpatient (CLI) | payer OTHER | END 2025-09-09 14:58 | disposition home or self-care (01) | LOC: ULT 14:57 | PROVIDERS: ATTEND Family Medicine | DX: R35.0 Frequency of micturition (principal); D17.71 Benign lipomatous neoplasm of kidney | CPT/HCPCS: 76770 ==

== ENCOUNTER 2025-09-14 07:55 | Emergency (ER) | payer OTHER ==
[2025-09-14] MEDS ORDERED: HYDROcodone/Acetaminophen 10/325 mg Tablet ONE (08:55)
[2025-09-14] MEDS ORDERED: Ketorolac Tromethamine 30 MG (1 mL) VIAL ONE (08:55)
== END 2025-09-14 09:16 | disposition home or self-care (01) ==
LOC: ERS 07:55
DX: G89.29 Other chronic pain (principal); M54.50 Low back pain, unspecified; G62.9 Polyneuropathy, unspecified; I10 Essential (primary) hypertension
CPT/HCPCS: 96372; 99283; J1885